=== PATIENT | female | born 1965 | race Caucasian/White ===

== ENCOUNTER → 2024-08-09 | Outpatient (CLI) | payer BC, SELFPAY ==
[2024-08-09 18:03] LABS: Free T4 (Free Thyroxine) 1.88 ng/dL (0.89-1.76); Thyroid Stimulating Hormone 1.29 uIU/mL (0.55-4.78)
[2024-08-15 06:42] LABS: T3,Total* 84 ng/dL (76-181)
== END | disposition home or self-care (01) ==
LOC: COPL 16:10
PROVIDERS: PCP Family Medicine; Referring Provider Nurse Practitioner Family; Visit Provider Nurse Practitioner Family
DX: E89.0 Postprocedural hypothyroidism (principal)
CPT/HCPCS: 36415; 84439; 84443; 84480

== ENCOUNTER → 2024-11-14 | Outpatient (CLI) | payer BC, SELFPAY ==
[2024-11-14 17:51] LABS: Alanine Aminotransferase 15 U/L (10-49); Albumin, Serum 4.6 gm/dL (3.5-5.0); Alkaline Phosphatase 74 U/L (46-116); Aspartate Amino Transferase 20 U/L (0-34); Basophils # (Auto) 0.1 Thou/mm3 (0.0-0.2); Basophils % (Auto) 1 % (0-2.5); Bilirubin,Direct < 0.1 mg/dL (0.0-0.3); Bilirubin,Total 0.4 mg/dL (0.3-1.2); Eosinophils # (Auto) 0.1 Thou/mm3 (0.0-0.5); Eosinophils % (Auto) 2 % (0-10); Free T4 (Free Thyroxine) 1.97 ng/dL (0.89-1.76); Hematocrit 39.2 % (36.0-46.0); Hemoglobin 13.4 g/dL (12.0-16.0); Immature Granulocytes Auto 0.01 Thou/mm3 (0.00-0.00); Lymphocytes # (Auto) 1.6 Thou/mm3 (1.0-4.8); Lymphocytes % (Auto) 27 % (10-50); Mean Corpuscular HGB Conc 34.2 g/dl (31.0-37.0); Mean Corpuscular Hemoglobin 33.2 pg (25.0-35.0); Mean Corpuscular Volume 97 fL (80-100); Monocytes # (Auto) 0.5 Thou/mm3 (0.0-0.8); Monocytes % (Auto) 9 % (0-12); Neutrophils # (Auto) 3.7 Thou/mm3 (1.8-7.7); Neutrophils % (Auto) 62 % (37-80); Nucleated Red Blood Cell # 0.00 Thou/mm3 (0.00-0.00); Nucleated Red Blood Cell % 0 /100 WBC (0); Platelet Count 256 Thou/mm3 (140-440); RDW Standard Deviation 45.2 fL (36.4-46.3); Red Blood Count 4.04 Miln/mm3 (4.00-5.20); Thyroid Stimulating Hormone 0.56 uIU/mL (0.55-4.78); Total Protein 6.9 gm/dL (5.7-8.2); White Blood Count 6.0 Thou/mm3 (3.6-11.0)
[2024-11-20 06:41] LABS: T3,Total* 73 ng/dL (76-181)
== END | disposition home or self-care (01) ==
PROVIDERS: PCP Nurse Practitioner Family; Referring Provider Psychiatry & Neurology Neurology; Visit Provider Psychiatry & Neurology Neurology
DX: E89.0 Postprocedural hypothyroidism (principal); G35 Multiple sclerosis; Z79.60 Long term (current) use of unspecified immunomodulators and immunosuppressants; Z79.899 Other long term (current) drug therapy
CPT/HCPCS: 36415; 80076; 84439; 84443; 84480; 85025

== ENCOUNTER → 2025-01-23 | Outpatient (CLI) | payer BC, SELFPAY ==
--- NOTE | 2025-01-23 07:30 | XR_ITS ---
Examination: MRI thoracic spine without contrast. Date and time of exam: January 23, 2025 0727 hours, comparison 01/16/2021 INDICATIONS: Diagnosis multiple sclerosis Technique: Multiple sagittal and axial images of the thoracic spine have been obtained. T1 weighted localizer, sagittal T2 weighted images, TR 30-50, TE 148, T1 weighted sagittal images, TR 650, TE 14, T2-weighted transverse images, TR 6770, TE 142 Findings: Adequate alignment thoracic vertebral bodies on the lateral view Mild diffuse thoracic disc desiccation Minimal diffuse thoracic disc narrowing. No focal thoracic disc protrusions. STIR images demonstrate increased signal in the cervical and thoracic cord, most prominent cervical cord and upper thoracic cord extending to the T3 level No syrinx cavity Impression: Increased signal in the cervical and thoracic cord seen with demyelinating disease
== END | disposition home or self-care (01) ==
LOC: SMRI 07:07
PROVIDERS: Referring Provider Psychiatry & Neurology Neurology; Visit Provider Psychiatry & Neurology Neurology
DX: G37.9 Demyelinating disease of central nervous system, unspecified (principal); G35 Multiple sclerosis
CPT/HCPCS: 72146

== ENCOUNTER → 2025-02-22 | Outpatient (CLI) | payer BC, SELFPAY ==
--- NOTE | 2025-02-22 07:00 | XR_ITS ---
Examination: MRI brain without intravenous contrast. Date and time of exam: February 22, 2025, 0657 hours, comparison December 30, 2022 INDICATIONS: Ataxia loss of balance episode 7 years, diagnosis multiple sclerosis Technique: Multiple axial and sagittal images of the brain obtained. Siemens high-resolution 1.5 Michelle short bore scanners utilized. Sagittal sections, T1-weighted, TR 500, TE 14, are performed. Axial sections proton-density and T2-weighted have been obtained. Inversion recovery axial images, TR 9, 260, TE 111, TI 2500. Diffusion weighted images, axial sections, TR 4800, TE 128, B value 1000 Axial sections, ADC map, TR 4800, TE 128 Findings: Enlargement of the sella turcica is not present. The optic chiasm and infundibular are not remarkable. Prepontine and interpeduncular cisterns are not enlarged. There is no localized enlargement of the medulla or lavell. Fourth ventricle and cerebellar tonsils appear normal in position. No subacute area of hemorrhage density is seen. Mass in the cerebellopontine angle region is not evident. Globes symmetrical. Orbital musculature including medial lateral rectus muscles do not exhibit abnormality. Diffusion-weighted images demonstrate no focus of restricted diffusion. Increased white matter signal again noted, stable punctate foci of increased signal in the white matter Mass effect upon the ventricular system is not identified. Impression: Stable punctate foci of increased signal in the white matter, demyelinating disease pattern
--- NOTE | 2025-02-22 07:30 | XR_ITS ---
Examination: MRI cervical spine without intravenous contrast Date and time of exam: February 22, 2025, 0724 hours INDICATIONS: Diagnosis multiple sclerosis COMPARISON: 01/14/2021 Technique: Multiple axial and sagittal sections of the cervical spine to been obtained. T2 weighted sagittal sections, TR 3, 270, TE 117 T1-weighted sagittal sections, TR 500, TE 11 T1-weighted axial sections, TR 607, TE 12, axial sections TR 18, TE 27 and T2 weighted transverse sections, TR 3920, TE 122. Findings: Adequate alignment cervical vertebral bodies No cervical fracture. Intact odontoid. Diffuse cervical disc desiccation Diffuse increased signal in the cervical cord which appears more prominent compared to 01/14/2021 but this may relate to difference in technique Axial images demonstrate no focal indentation or impression upon the cervical cord IMPRESSION: Increased signal diffusely in the cervical cord consistent with demyelinating disease
== END | disposition home or self-care (01) ==
LOC: SMRI 06:31
PROVIDERS: PCP Family Medicine; Referring Provider Psychiatry & Neurology Neurology; Visit Provider Psychiatry & Neurology Neurology
DX: M53.82 Other specified dorsopathies, cervical region (principal); R90.82 White matter disease, unspecified
CPT/HCPCS: 70551; 72141